=== PATIENT | male | born 1995 | race Two or more races ===

== ENCOUNTER 2020-10-28 12:12 | Emergency (ER) | payer OTHER ==
[2020-10-28] MEDS ORDERED: HYDROmorphone 1 MG/ML Syringe IM ONE (12:39)
--- NOTE | 2020-10-28 13:43 | CR ---
Left forearm: 2 views of the left forearm were obtained. Comparison: No previous study. Comminuted distal left radial fracture is seen. Transverse fracture line is noted through the metaphysis with a vertical fracture line being seen extending into the epiphysis in several locations. Small and slightly displaced fracture within the ulnar styloid process is seen. Overlapping splint is seen. No additional osseous abnormality is identified. Soft tissue swelling is seen. Impression: 1. Comminuted distal left radial fracture with articular extension. 2. Small fracture within the ulnar styloid process. Diagnostic code #3
--- NOTE | 2020-10-28 13:48 | EDM.PDOC ---
ED HPI GENERAL MEDICAL PROBLEM - General Chief Complaint: Upper Extremity Injury/Pain Stated Complaint: SEEN AT [facility] WEEK BROKEN ARM IS WORSE Time Seen by Provider: 10/28/20 12:25 Source of Information: Reports: Patient, Family, RN Notes Reviewed History Limitations: Reports: No Limitations - History of Present Illness INITIAL COMMENTS - FREE TEXT/NARRATIVE: Patient is a 25-year-old male presenting to the emergency department with complaints of worsening pain and swelling to his left lower arm. Reports that on October 21, he fractured his distal radius. He was seen at the [facility] and placed in a splint. Referral was sent to Dr. Taylor, orthopedist, however they have been unable to get a hold of him to schedule an appointment. He was prescribed hydrocodone with Tylenol for pain and states he only has 2 left. He has not taken any today. He reports pain extending from his hand to his mid forearm. Denies any numbness or tingling. Other Treatments PATIENT RELATIONS SPECIALIST: did not take norco due to working and not eating Left Arm Pain Score (Numeric/FACES): 5 - Related Data Allergies Allergy/AdvReac Type Severity Reaction Status Date / Time Penicillins Allergy Severe Swelling Verified 10/28/20 12:32 Home Meds: Home Meds Acetaminophen/HYDROcodone [[facility] 325-5 MG] 1 tab PO Q6H PRN 10/28/20 [History] Hydrocodone/Acetaminophen [Hydrocodone-Acetamin 5-325 mg] 1 each PO Q4H PRN #12 tablet 10/28/20 [Rx] Past Medical History Musculoskeletal History: Reports: Other (See Below) Other Musculoskeletal History: fx of left radial head Social & Family History - Tobacco Use Tobacco Use Status *Q: Never Tobacco User - Caffeine Use Caffeine Use: Reports: Soda - Recreational Drug Use Recreational Drug Type: Reports: Marijuana/Hashish Review of Systems - Review of Systems Review Of Systems: Comprehensive ROS is negative, except as noted in HPI. ED EXAM, GENERAL - Physical Exam Exam: See Below General Appearance: Alert, Mild Distress Respiratory/Chest: No Respiratory Distress, Lungs Clear, Normal Breath Sounds, No Accessory Muscle Use, Chest Non-Tender Cardiovascular: Normal Peripheral Pulses, Regular Rate, Rhythm, No Edema, No Gallop, No JVD, No Murmur, No Rub Extremities: Other (Pain and swelling to left distal forearm into hand. CMS is intact.) Neurological: Alert, Oriented, CN II-XII Intact, Normal Cognition, Normal Gait, Normal Reflexes, No Motor/Sensory Deficits Psychiatric: Normal Affect, Normal Mood Skin Exam: Warm, Dry, Intact, Normal Color, No Rash Course - Vital Signs Last Recorded V/S: Last Vital Signs Temp 97.6 F 10/28/20 12:26 Pulse 90 10/28/20 12:26 Resp 20 10/28/20 12:26 BP 129/73 10/28/20 12:26 Pulse Ox 98 10/28/20 12:26 - Orders/Labs/Meds Meds: Medications Discontinued Medications Generic Name Dose Route Start Last Admin Trade Name Freq PRN Reason Stop Dose Admin Hydromorphone HCl 1 mg 10/28/20 12:39 10/28/20 12:47 Hydromorphone 1 Mg/Ml Syringe IM 10/28/20 12:40 1 mg ONETIME ONE Administration - Re-Assessments/Exams Free Text/Narrative Re-Assessment/Exam: Patient is a 25-year-old male presenting to the emergency department with complaints of worsening pain to his left arm. He sustained what he described as a distal radius fracture 7 days ago and was seen in the [facility]. On presentation, he has a sugar tong splint extending just past the wrist on his left extremity. At this point, I am uncertain where the actual fracture is. I ordered Dilaudid 1 mg IM to be given now. Of also ordered x-rays of the left forearm. 10/28/20 13:45 X-ray of the left forearm shows a comminuted fracture of the distal radius. Patient's sugar tong splint does not fully immobilize the hand so is my suspicion that this has been aggravating the injury causing worsening pain and swelling. I did remove the sugar tong splint and apply a new custom Ortho-Glass short arm, ventral, cock-up splint. This will fully immobilize the hand and not allow for any movement at the wrist. Patient tolerated the procedure well. Already reports improvement in pain. CMS is intact distal to the splint application. Patient would like to see an orthopedist in [place]. I will send referral to Dr. Ashford at [facility]. Recommend calling Thursday to set up an appointment. I will send prescription for additional hydrocodone with Tylenol. Discussed ice and elevation of the extremity. Discharge instructions as documented. Departure - Departure Time of Disposition: 13:48 Disposition: Home, Self-Care 01 Condition: Good Clinical Impression: Radius distal fracture Qualifiers: Encounter type: initial encounter Fracture type: closed Fracture morphology: unspecified fracture morphology Laterality: left Qualified Code(s): S52.502A - Unspecified fracture of the lower end of left radius, initial encounter for closed fracture - Discharge Information *PRESCRIPTION DRUG MONITORING PROGRAM REVIEWED*: Yes *COPY OF PRESCRIPTION DRUG MONITORING REPORT IN PATIENT SEDRICK: No Prescriptions: Hydrocodone/Acetaminophen [Hydrocodone-Acetamin 5-325 mg] 1 each PO Q4H PRN #12 tablet PRN Reason: Pain Instructions: Wrist Fracture Treated With Immobilization, [id number] Referrals: Juwan Ashford MD [Primary Care Provider] - Forms: ED Department Discharge Additional Instructions: You were seen in the emergency department today for worsening pain to your left arm after sustaining a wrist fracture 1 week ago. New x-rays were completed and do show a fracture of the distal radius. Splint was removed and a new splint was applied that should better immobilize your hand and help with the pain and swelling. Recommend icing through the splint and elevating the extremity when at rest. Use Tylenol and ibuprofen routinely. For pain not relieved by this, a prescription for hydrocodone with Tylenol has been provided. Take this as prescribed. Do not work or drive for 12 hours after taking this as it can be sedating. Referral has been sent to orthopedist, Dr. Ashford at [facility]. Call Thursday to set up a follow-up appointment with him. The number to schedule with him as listed below. If you should experience any new or worsening symptoms, please do not hesitate to return to the emergency department for reevaluation. Sepsis Event Note (ED) - Evaluation Sepsis Screening Result: No Definite Risk - Focused Exam Vital Signs: Vital Signs Temp Pulse Resp BP Pulse Ox 10/28/20 12:26 97.6 F 90 20 129/73 98
== END 2020-10-28 14:05 | disposition home or self-care (01) ==
LOC: JD.ED 12:12 → SUPCPDRO 12:12 → JD.ED 14:05
DX: S52.592A Other fractures of lower end of left radius, initial encounter for closed fracture (principal); Z88.0 Allergy status to penicillin; V86.99XA Unspecified occupant of other special all-terrain or other off-road motor vehicle injured in nontraffic accident, initial encounter
CPT/HCPCS: 29125; 73090; 96372; 99283; J1170; 99282

== ENCOUNTER → 2020-11-01 | Day surgery (SDC) | payer SELFPAY ==
[~2020-11-01] MED LIST: Acetaminophen/HYDROcodone 325-5 MG Tab PO PRN; HYDROmorphone 0.5 MG/0.5 ML Syringe IVPUSH SCH; Lactated Ringers 1,000 ML IV SCH; Lidocaine 1% 4 ML ONE; Lidocaine 1%/Sod Bicarbonate in NS 8.4% 1 ML Syringe IDERM PRN; Midazolam 1 MG/ML 2 ML SDV ONE; Propofol 200 MG/20 ML SDV ONE; Sodium Chloride 0.9% 10 ML Syringe FLUSH PRN; fentaNYL 100 MCG/2 ML SDV IVPUSH SCH; fentaNYL 100 MCG/2 ML SDV ONE
--- NOTE | 2020-11-01 11:01 | PCM.PREANE ---
Preanesthetic Assessment - Procedure Proposed Procedure: Closed Reduction of ORIF of left distal radius vs ORIF of left distal radius fracture - Anesthesia/Transfusion/Family Hx Anesthesia History: No Prior Anesthesia Family History of Anesthesia Reaction: No Transfusion History: No Prior Transfusion(s) Intubation History: Unknown - Review of Systems General: No Symptoms Pulmonary: No Symptoms Cardiovascular: No Symptoms Gastrointestinal: No Symptoms Neurological: No Symptoms Other: Reports: None - Physical Assessment NPO Status Date: 10/31/20 NPO Status Time: 23:30 Vital Signs: BP 133/73 HR 79 98.3 16 RR 97% RA Height: 1.73 m Weight: 97 kg ASA Class: 2 Mental Status: Alert & Oriented x3 Dentition: Reports: Missing Tooth/Teeth, Caries Thyro-Mental Finger Breadths: 3 Mouth Opening Finger Breadths: 3 ROM/Head Extension: Full Lungs: Clear to Auscultation, Normal Respiratory Effort Cardiovascular: Regular Rate, Regular Rhythm - Allergies Allergies/Adverse Reactions: Allergies Allergy/AdvReac Type Severity Reaction Status Date / Time Penicillins Allergy Severe Swelling Verified 10/28/20 12:32 - Blood Blood Available: No Product(s) Available: None - Anesthesia Plan Pre-Op Medication Ordered: None - Acknowledgements Anesthesia Type Planned: General Anesthesia, MAC Pt an Appropriate Candidate for the Planned Anesthesia: Yes Alternatives and Risks of Anesthesia Discussed w Pt/Guardian: Yes Pt/Guardian Understands and Agrees with Anesthesia Plan: Yes PreAnesthesia Questionnaire Musculoskeletal History: Reports: Other (See Below) Other Musculoskeletal History: fx of left radial head - SUBSTANCE USE Tobacco Use Status *Q: Never Tobacco User Tobacco Use Within Last Twelve Months: No Days Per Week of Alcohol Use: 1 Number of Drinks Per Day: 1 Total Drinks Per Week: 1 Recreational Drug Use History: Yes Recreational Drug Type: Reports: Marijuana/Hashish - HOME MEDS Home Medications: Home Meds Hydrocodone/Acetaminophen [Hydrocodone-Acetamin 5-325 mg] 1 - 2 each PO Q6H PRN #20 tablet 10/31/20 [Rx] - CURRENT (IN HOUSE) MEDS Current Meds: Current Medications Lactated Ringer's (Ringers, Lactated) 1,000 mls @ 125 mls/hr IV ASDIRECTED AMALIA Stop: 11/01/20 23:00 Lidocaine/Sodium Bicarbonate (Lidocaine 1%/Sod Bicarbonate In Ns 8.4% 1 Ml Syringe) 0.25 ml IDERM ONETIME PRN PRN Reason: Prior to IV Start Stop: 11/01/20 18:00 Sodium Chloride (Sodium Chloride 0.9% 10 Ml Syringe) 10 ml FLUSH ASDIRECTED PRN PRN Reason: Keep Vein Open Stop: 11/01/20 18:00
--- NOTE | 2020-11-01 12:20 | PCM.POSTAN ---
POST ANESTHESIA ASSESSMENT - MENTAL STATUS Mental Status: Alert, Oriented - VITAL SIGNS Vital Signs: Last Vital Signs Temp 98.3 F 11/01/20 09:00 Pulse 79 11/01/20 09:00 Resp 16 11/01/20 09:00 BP 133/73 11/01/20 09:00 Pulse Ox 97 11/01/20 09:00 1216 123/87 99% 91 19 97.4 - RESPIRATORY Respiratory Status: Respiratory Rate WNL, Airway Patent, O2 Saturation Stable, Supplemental Oxygen - CARDIOVASCULAR CV Status: Pulse Rate WNL, Blood Pressure Stable - GASTROINTESTINAL GI Status: No Symptoms - PAIN Pain Score: 0 - POST OP HYDRATION Hydration Status: Adequate & Stable
[2020-11-01] MEDS: HYDROmorphone 0.5 MG/0.5 ML Syringe ONE ×2 (12:35→12:59)
[2020-11-01] MEDS: fentaNYL 100 MCG/2 ML SDV ONE ×2 (12:47→12:59)
--- NOTE | 2020-11-01 12:56 | PCM48HPAN ---
Post Anesthesia Note - EVALUATION WITHIN 48HRS OF ANESTHETIC Vital Signs in Normal Range: Yes Patient Participated in Evaluation: Yes Respiratory Function Stable: Yes Airway Patent: Yes Cardiovascular Function Stable: Yes Hydration Status Stable: Yes Pain Control Satisfactory: Yes (continuing to medicate. ) Nausea and Vomiting Control Satisfactory: Yes Mental Status Recovered: Yes Vital Signs: Last Vital Signs Temp 97.5 F 11/01/20 12:45 Pulse 70 11/01/20 12:45 Resp 11 L 11/01/20 12:45 BP 119/88 11/01/20 12:45 Pulse Ox 99 11/01/20 12:45
--- NOTE | 2020-11-01 14:55 | CR ---
Left wrist: 8 fluoroscopic spot views of the left wrist were obtained utilizing C-arm device. Comparison: Prior left forearm study of 10/28/20. Study shows reduction of comminuted distal left radial fracture with placement of fiberglass cast. Small fracture within the ulnar styloid process is noted. Fluoroscopy time is given as 13.1 seconds. Impression: 1. Procedural study as described above. Diagnostic code #2
--- NOTE | 2020-11-07 13:10 | PCM.OPNOTE ---
- General Post-Op/Procedure Note Date of Surgery/Procedure: 11/01/20 Operative Procedure(s): left distal radius closed reduction and short arm casting Pre Op Diagnosis: left intraarticular distal radius fracture Post-Op Diagnosis: Same Anesthesia Technique: General LMA Primary Surgeon: Juwan Ashford Anesthesia Provider: Dillon Lutz Spray Mixer: Naomi Arce in mLs: 0 Complications: None Condition: Good
--- NOTE | 2020-11-11 21:28 | OR ---
DATE OF OPERATION: 11/01/2020 SURGEON: Juwan Ashford MD OPERATION PERFORMED: Left distal radius fracture closed reduction and short-arm casting. PREOPERATIVE DIAGNOSIS: Left intra-articular distal radius fracture. POSTOPERATIVE DIAGNOSIS: Left intra-articular distal radius fracture. ANESTHESIA: General LMA. ANESTHESIA PROVIDER: Dillon Lutz CRNA FIRE HYDRANT MECHANIC: Naomi Arce LPN ESTIMATED BLOOD LOSS: Not applicable. COMPLICATIONS: None. CONDITION: Stable. DESCRIPTION OF PROCEDURE: The patient was identified in the preoperative holding area. Proper site was marked and identified by the surgeon. The patient was taken back to the operating theater where after anesthesia, the patient's left upper extremity had the splint taken off, OR time-out was performed, and at this time, a closed reduction maneuver was attempted. At this time, patient was noted to have full pentecostal of radial tilt and height as well as angulation on AP and lateral views. Under stockinette and cast padding was then applied. The patient then had a short-arm cast applied in an ulnar deviated and volarly deviated position. The patient was noted to have anatomic reduction after the cast was applied and mold was held on both AP and lateral views. The patient will follow up in 3 to 4 weeks' time with cast-off, repeat radiographs, then go into a cock-up wrist brace. MMJANA /[id number] MTDD
== END | disposition home or self-care (01) ==
LOC: JD.SDS 09:04
PROVIDERS: ATTEND Orthopaedic Surgery
DX: S52.572A Other intraarticular fracture of lower end of left radius, initial encounter for closed fracture (principal); Z88.0 Allergy status to penicillin; Z79.899 Other long term (current) drug therapy
CPT/HCPCS: 25605; 76000; A9270; J1170; J2250; J2704; J3010; J7120; 01820